=== PATIENT | male | born 1985 | race Caucasian/White ===

== ENCOUNTER → 2021-08-30 15:35 | Outpatient (CLI) | payer BC, SELFPAY ==
[2021-08-30 19:13] LABS: Semen Viscosity Stringy (Normal); WBCs,Semen Small
[2021-08-30 19:16] LABS: 3Hr Motility Quality Good Progression (Mod-Rapid); 3Hr Sperm Motility 50 % (50-60); Motility Quality Good Progression (Mod-Rapid); Sperm Count 58 mil/mm3 (20-160); Sperm Morphology Normal (Normal); Sperm Motility 75 % (50-90)
== END ==
PROVIDERS: PCP Family Medicine; Visit Provider Urology
DX: N46.8 Other male infertility (principal)
CPT/HCPCS: 89320